=== PATIENT | male | born 1980 | race Caucasian/White ===

== ENCOUNTER 2017-07-09 19:35 | Emergency (ER) | payer OTHER ==
[2017-07-09] MEDS ORDERED: Sodium Chloride 0.9% 10 ML Syringe FLUSH PRN (20:07)
[2017-07-09] MEDS ORDERED: HYDROmorphone 0.5 MG/0.5 ML SYRINGE IVPUSH ONE (20:07)
[2017-07-09] MEDS ORDERED: Metoclopramide 10 MG/2 ML SDV IVPUSH ONE (20:08)
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
--- NOTE | 2017-07-09 21:30 | CT ---
CT lumbar spine Technique: Multiple axial sections were obtained from the top of T11 inferiorly to the mid S2 segment. Reconstructed sagittal and coronal images were reviewed. Comparison: No prior lumbar spine imaging. Findings: Mild disc space narrowing is noted at T11-T12 and T12-L1. Minimal Schmorl node deformities are noted at T12-L1. Other disc spaces are maintained. Posterior disks are fairly well contained with no disc herniation. No central canal stenosis or neural foraminal stenosis is seen. Mild degenerative change is seen within the right apophyseal joint at L5-S1. No fracture is seen. No abnormal subluxation is seen on the reconstructed sagittal images. Impression: 1. Incidental findings. Nothing acute is seen on CT study of the lumbar spine. Diagnostic code #2
== END 2017-07-09 21:55 | disposition home or self-care (01) ==
LOC: JD.ED 19:35
DX: S39.012A Strain of muscle, fascia and tendon of lower back, initial encounter (principal); F17.210 Nicotine dependence, cigarettes, uncomplicated; Z88.0 Allergy status to penicillin; W00.0XXA Fall on same level due to ice and snow, initial encounter; Y93.H1 Activity, digging, shoveling and raking; Y92.89 Other specified places as the place of occurrence of the external cause
CPT/HCPCS: 72131; 96374; 96375; 99284; J1170; J2765; J7050

== ENCOUNTER 2017-08-19 15:33 | Emergency (ER) | payer OTHER ==
[2017-08-19] MEDS ORDERED: Sodium Chloride 0.9% 1,000 ML IV ONE (16:27)
[2017-08-19] MEDS ORDERED: Ondansetron 4 MG/2 ML SDV IVPUSH ONE (16:28)
[2017-08-19] MEDS ORDERED: Sodium Chloride 0.9% 10 ML Syringe FLUSH PRN (16:28)
[2017-08-19] MEDS ORDERED: Famotidine 20 MG/2 ML SDV IVPUSH ONE (16:28)
--- NOTE | 2017-08-19 19:06 | EDM.PDOC ---
ED HPI GENERAL MEDICAL PROBLEM - General Chief Complaint: Abdominal Pain Stated Complaint: CHEST PAIN Time Seen by Provider: 08/19/17 16:10 Source of Information: Reports: Patient History Limitations: Reports: No Limitations - History of Present Illness INITIAL COMMENTS - FREE TEXT/NARRATIVE: 36-year-old male presents for evaluation and treatment of fevers, chest pain and abdominal pain. Patient reports he's had a fever ranging between 100.1 and 103 at home over the last 2-3 days. He states around 3 PM today he started having pain in his right upper abdomen into his chest. He states he is having dry heaves and feels lightheaded. He also reports a cough. No vomiting, syncope or back pain. He states that he has a slight headache. Reports he has shortness of breath but states this is nothing out of the normal for him. he had a lap band placed this was done in [place] by Dr. garner in April 2009. He has not had any problems with this thus far. 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 Left Upper Abdomen Pain Score (Numeric/FACES): 6 - Related Data Allergies Allergy/AdvReac Type Severity Reaction Status Date / Time Penicillins Allergy Rash Verified 07/09/17 20:07 Home Meds: Home Meds Ondansetron [Zofran ODT] 4 mg PO Q6H PRN #15 tab.dis 08/19/17 [Rx] Past Medical History Gastrointestinal History: Reports: Chronic Diarrhea, Diverticulosis Musculoskeletal History: Reports: Arthritis, Fracture, Osteoarthritis Other Musculoskeletal History: bilateral arms and a finger Neurological History: Reports: Concussion - Past Surgical History GI Surgical History: Reports: Appendectomy, Cholecystectomy, Other (See Below) Other GI Surgeries/Procedures: Lap band placement, Social & Family History - Family History Family Medical History: Noncontributory - Tobacco Use Smoking Status *Q: Current Every Day Smoker Years of Tobacco use: 25 Packs/Tins Daily: 1 - Caffeine Use Caffeine Use: Reports: Coffee - Recreational Drug Use Recreational Drug Use: Yes Recreational Drug Type: Reports: Marijuana/Hashish - Living Situation & Occupation Living situation: Reports: Occupation: Employed ED ROS GENERAL - Review of Systems Review Of Systems: See Below Constitutional: Reports: Fever Respiratory: Reports: Shortness of Breath (chronic), Cough Cardiovascular: Reports: Chest Pain, Lightheadedness. Denies: Syncope GI/Abdominal: Reports: Abdominal Pain, Nausea. Denies: Vomiting Musculoskeletal: Denies: Back Pain ED EXAM, GI/ABD - Physical Exam Exam: See Below Exam Limited By: No Limitations General Appearance: Alert, WD/WN, No Apparent Distress, Obese Ears: Normal External Exam, Normal Canal, Hearing Grossly Normal Nose: Normal Inspection Throat/Mouth: Normal Inspection, Normal Lips, Normal Teeth, Normal Oropharynx, Normal Voice, No Airway Compromise Neck: Normal Inspection Respiratory/Chest: No Respiratory Distress, Lungs Clear, Normal Breath Sounds Cardiovascular: Normal Peripheral Pulses, Regular Rate, Rhythm, No Murmur GI/Abdominal Exam: Normal Bowel Sounds, Soft, Non-Tender Neurological: Alert, Oriented, Normal Cognition Psychiatric: Normal Affect, Normal Mood Skin Exam: Warm, Dry, Normal Color EKG INTERPRETATION EKG Date: 08/19/17 Time: 16:30 Rhythm: NSR Rate (Beats/Min): 90 [place]: Normal P-Wave: Present QRS: Normal ST-T: Elevated (V2 slight) QT: Normal EKG Interpretation Comments: NSR at [address] elevation V2. Low voltage limb leads. Reviewed by myself and Dr. Pedersen. Course - Vital Signs Last Recorded V/S: Last Vital Signs Temp 36.8 C 08/19/17 15:40 Pulse 92 08/19/17 15:40 Resp 18 08/19/17 15:40 BP 126/86 08/19/17 15:40 Pulse Ox 97 08/19/17 15:40 - Orders/Labs/Meds Labs: Laboratory Tests 08/19/17 08/19/17 08/19/17 Range/Units 16:45 16:45 17:45 WBC 6.23 (4.23-9.07) K/mm3 RBC 5.19 (4.63-6.08) M/mm3 Hgb 14.6 (13.7-17.5) gm/L Hct 44.4 (40.1-51.0) % MCV 85.5 (79.0-92.2) fl MCH 28.1 (25.7-32.2) pg MCHC 32.9 (32.2-35.5) g/dl RDW Std Deviation 44.6 H (35.1-43.9) fL Plt Count 213 (163-337) K/mm3 MPV 10.3 (9.4-12.3) fl Neutrophils % (Manual) 86 H (40-60) % Band Neutrophils % 0 (0-10) % Lymphocytes % (Manual) 7 L (20-40) % Atypical Lymphs % 0 % Monocytes % (Manual) 5 (2-10) % Eosinophils % (Manual) 1 (0.8-7.0) % Basophils % (Manual) 1 (0.2-1.2) Platelet Estimate Adequate RBC Morph Comment Normal Sodium 137 (136-145) mEq/L Potassium 3.8 (3.5-5.1) mEq/L Chloride 101 (98-107) mEq/L Carbon Dioxide 23 (21-32) mEq/L Anion Gap 16.8 H (5-15) BUN 15 (7-18) mg/dL Creatinine 0.9 (0.7-1.3) mg/dL Est Cr Clr Drug Dosing 114.91 mL/min Estimated GFR (MDRD) > 60 (>60) mL/min BUN/Creatinine Ratio 16.7 (14-18) Glucose 96 (74-106) mg/dL Calcium 8.4 L (8.5-10.1) mg/dL Total Bilirubin 0.7 (0.2-1.0) mg/dL AST 16 (15-37) U/L ALT 18 (16-63) U/L Alkaline Phosphatase 78 (46-116) U/L Troponin I < 0.017 (0.00-0.056) ng/mL C-Reactive Protein 5.3 H* (<1.0) mg/dL Total Protein 7.2 (6.4-8.2) g/dl Albumin 3.6 (3.4-5.0) g/dl Globulin 3.6 gm/dL Albumin/Globulin Ratio 1.0 (1-2) Urine Color Yellow (Yellow) Urine Appearance Clear (Clear) Urine pH 6.0 (5.0-8.0) Ur Specific [place] > or = 1.030 (1.005-1.030) Urine Protein 1+ H (Negative) Urine Glucose (UA) Negative (Negative) Urine Ketones Trace H (Negative) Urine Occult Blood Negative (Negative) Urine Nitrite Negative (Negative) Urine Bilirubin 1+ H (Negative) Urine Urobilinogen 1.0 (0.2-1.0) Ur Leukocyte Esterase Negative (Negative) Urine RBC 0-5 (0-5) /hpf Urine WBC 0-5 (0-5) /hpf Ur Epithelial Cells Not seen (0-5) /hpf Urine Bacteria Occasional (FEW) /hpf Urine Mucus Many H (FEW) /hpf Meds: Medications Discontinued Medications Generic Name Dose Route Start Last Admin Trade Name Freq PRN Reason Stop Dose Admin Famotidine 20 mg 08/19/17 16:28 08/19/17 16:44 Pepcid IVPUSH 08/19/17 16:29 20 mg ONETIME ONE Administration Sodium Chloride 1,000 mls @ 999 mls/hr 08/19/17 16:27 08/19/17 16:42 Normal Saline IV 08/19/17 17:27 999 mls/hr ONETIME ONE Administration Ondansetron HCl 4 mg 08/19/17 16:28 08/19/17 16:43 Zofran IVPUSH 08/19/17 16:29 4 mg ONETIME ONE Administration Sodium Chloride 10 ml 08/19/17 16:28 08/19/17 16:45 Saline Flush FLUSH 10 ml ASDIRECTED PRN Administration Keep Vein Open - Radiology Interpretation Free Text/Narrative:: 2 view chest x-ray shows no acute intrathoracic process. - Re-Assessments/Exams Free Text/Narrative Re-Assessment/Exam: 08/19/17 18:55 At this point the patient is resting comfortably. He is anxious to go home at this time. I reviewed the EKG, labs and chest x-ray results with the patient. We will discharge him home. Discharge instructions as documented. Departure - Departure Time of Disposition: 18:55 Disposition: Home, Self-Care 01 Condition: Fair Clinical Impression: Viral gastroenteritis - Discharge Information Prescriptions: Ondansetron [Zofran ODT] 4 mg PO Q6H PRN #15 tab.dis PRN Reason: Nausea Instructions: Viral Gastroenteritis, Adult, [id number] Referrals: PCP,None [Primary Care Provider] - Ruthie Nina [Physician] - Forms: ED Department Discharge Additional Instructions: take the zofran 1 tab sublingual every 6-8 hours prn nausea. take tylenol or motrin as needed for fevers and discomfort. Follow-up with Dr. Weber this week if symptoms persist. Please return to the ER for symptoms change or worsen.
--- NOTE | 2017-08-20 07:39 | CR ---
Chest: Two views of the chest were obtained. Comparison: Prior chest x-ray of 07/14/10. Heart size and mediastinum are normal. Lungs are clear. Lap band is noted. Bony structures are within normal limits for the patient's age. Impression: 1. Nothing acute is identified on two-view chest x-ray. Diagnostic code #2
== END 2017-08-19 19:08 | disposition home or self-care (01) ==
LOC: JD.ED 15:33
DX: A08.4 Viral intestinal infection, unspecified (principal); F17.210 Nicotine dependence, cigarettes, uncomplicated; Z88.0 Allergy status to penicillin
CPT/HCPCS: 36415; 71046; 80053; 81001; 84484; 85025; 86140; 93005; 96361; 96374; 96375; 99285; J2405; J7040; J7050

== ENCOUNTER 2019-12-05 20:33 | Emergency (ER) | payer OTHER ==
--- NOTE | 2019-12-05 21:13 | EDM.PDOC ---
ED HPI GENERAL MEDICAL PROBLEM - General Chief Complaint: Lower Extremity Injury/Pain Stated Complaint: RT HEEL PAIN SWELLING FEELS LIKE SOMETHING IN IT Time Seen by Provider: 12/05/19 20:38 Source of Information: Reports: Patient History Limitations: Reports: No Limitations - History of Present Illness INITIAL COMMENTS - FREE TEXT/NARRATIVE: Patient is a 39-year-old male who presents to the emergency department with complaints of pain to his right heel. He states symptoms began yesterday morning. He states he awoke with the pain and has had no trauma to the area that he is aware of. He describes a sharp stabbing pain on the ventral aspect of his foot distal to the heel. He has no history of chronic foot pain. Right Feet Pain Score (Numeric/FACES): 2 - Related Data Allergies Allergy/AdvReac Type Severity Reaction Status Date / Time Penicillins Allergy Severe Rash Verified 12/05/19 20:47 Home Meds: Home Meds Naproxen [Naprosyn] 500 mg PO Q12HR #10 tab 12/05/19 [Rx] Past Medical History Gastrointestinal History: Reports: Chronic Diarrhea, Diverticulosis Musculoskeletal History: Reports: Arthritis, Fracture, Osteoarthritis Other Musculoskeletal History: bilateral arms and a finger Neurological History: Reports: Concussion - Past Surgical History GI Surgical History: Reports: Appendectomy, Cholecystectomy, Other (See Below) Other GI Surgeries/Procedures: Lap band placement, Social & Family History - Family History Family Medical History: Noncontributory - Tobacco Use Smoking Status *Q: Current Every Day Smoker Years of Tobacco use: 30 Packs/Tins Daily: 1 - Caffeine Use Caffeine Use: Reports: Coffee - Recreational Drug Use Recreational Drug Use: No - Living Situation & Occupation Living situation: Reports: Occupation: Employed Review of Systems - Review of Systems Review Of Systems: See Below Constitutional: Reports: No Symptoms Eyes: Reports: No Symptoms Ears: Reports: No Symptoms Nose: Reports: No Symptoms Mouth/Throat: Reports: No Symptoms Respiratory: Reports: No Symptoms Cardiovascular: Reports: No Symptoms GI/Abdominal: Reports: No Symptoms Genitourinary: Reports: No Symptoms Musculoskeletal: Reports: Other (Right heel pain) Skin: Reports: No Symptoms Neurological: Reports: No Symptoms Psychiatric: Reports: No Symptoms ED EXAM, GENERAL - Physical Exam Exam: See Below Exam Limited By: No Limitations General Appearance: Alert, WD/WN, No Apparent Distress Respiratory/Chest: No Respiratory Distress, Lungs Clear, Normal Breath Sounds, No Accessory Muscle Use, Chest Non-Tender Cardiovascular: Normal Peripheral Pulses, Regular Rate, Rhythm, No Edema, No Gallop, No JVD, No Murmur, No Rub Extremities: Normal Inspection, Normal Range of Motion, Other (Tenderness to palpation on the ventral aspect of the foot distal to the calcaneal tuberosity. No redness or lesion present. Pain worsens with dorsoflexion of the toes.) Neurological: Alert, Oriented, CN II-XII Intact, Normal Cognition, Normal Gait, Normal Reflexes, No Motor/Sensory Deficits Psychiatric: Normal Affect, Normal Mood Skin Exam: Warm, Dry, Intact, Normal Color, No Rash Course - Vital Signs Last Recorded V/S: Last Vital Signs Temp 98.1 F 12/05/19 20:45 Pulse 80 12/05/19 20:45 Resp 16 12/05/19 20:45 BP 147/97 H 12/05/19 20:45 Pulse Ox 99 12/05/19 20:45 - Orders/Labs/Meds Orders: Active Orders 24 hr Category Date Time Status Foot Comp Min 3V Rt [CR] Stat Exams 12/05/19 20:55 Ordered - Re-Assessments/Exams Free Text/Narrative Re-Assessment/Exam: 12/05/19 21:14 X-ray of the right foot was completed and found to be normal. There are no signs of any foreign body within the heel. I feel is likely the patient is suffering from plantar fasciitis. I will write a prescription for Naprosyn and recommend that he follow-up with pin inserter, Dr. Ingram at his next available appointment. Discharge instructions as documented. Departure - Departure Time of Disposition: 21:18 Disposition: Home, Self-Care 01 Condition: Good Clinical Impression: Heel pain Qualifiers: Laterality: right Qualified Code(s): M79.671 - Pain in right foot - Discharge Information *PRESCRIPTION DRUG MONITORING PROGRAM REVIEWED*: No *COPY OF PRESCRIPTION DRUG MONITORING REPORT IN PATIENT CLAUDINE: No Prescriptions: Naproxen [Naprosyn] 500 mg PO Q12HR #10 tab Instructions: Foot Pain Referrals: Chu Ingram II, DPM [Physician] - Forms: ED Department Discharge Additional Instructions: You were seen in the emergency department this evening for pain to your right heel. X-rays were completed and showed no evidence of a foreign body in the heel, and there is no signs of an entrance wound for possible foreign body. Your exam is consistent with likely plantar fasciitis which is an inflammation of the plantar fascia which extends across the bottom of your foot. A prescription for Naprosyn which is an anti-inflammatory has been sent to [facility] in [place]. Take this medication as prescribed. You may also ice over the area of pain intermittently over the next few days to help reduce the inflammation. Recommend that you wear shoes that have good arch support as this will likely improve your symptoms. Recommend that you call to schedule an appointment with pin inserter, Dr. Ingram at his next available appointment. Return to the ER for any worsening symptoms. Sepsis Event Note (ED) - Evaluation Sepsis Screening Result: No Definite Risk - Focused Exam Vital Signs: Vital Signs Temp Pulse Resp BP Pulse Ox 12/05/19 20:45 98.1 F 80 16 147/97 H 99 - My Orders Last 24 Hours: My Active Orders 12/05/19 20:55 Foot Comp Min 3V Rt [CR] Stat - Assessment/Plan Last 24 Hours: My Active Orders 12/05/19 20:55 Foot Comp Min 3V Rt [CR] Stat
--- NOTE | 2019-12-06 13:42 | CR ---
Right foot: 4 views of the right foot were obtained. Comparison: No prior right foot exam is available. No fracture, dislocation or other bony abnormality is appreciated. Impression: 1. No abnormality is appreciated on right foot exam. Diagnostic code #1 This report was dictated in MDT
== END 2019-12-05 21:27 | disposition home or self-care (01) ==
LOC: JD.ED 20:33
DX: M79.671 Pain in right foot (principal); F17.210 Nicotine dependence, cigarettes, uncomplicated; Z88.0 Allergy status to penicillin
CPT/HCPCS: 73630-26-RT; 73630-RT; 99283

== ENCOUNTER 2020-05-17 08:05 | Emergency (ER) | payer OTHER ==
--- NOTE | 2020-05-17 09:08 | EDM.PDOC ---
ED HPI GENERAL MEDICAL PROBLEM - General Chief Complaint: Lower Extremity Injury/Pain Stated Complaint: KNEE INJURY Time Seen by Provider: 05/17/20 08:27 Source of Information: Reports: Patient History Limitations: Reports: No Limitations - History of Present Illness INITIAL COMMENTS - FREE TEXT/NARRATIVE: 39-year-old male presents to the emergency department with complaints of an injury to his left knee. Patient states he was at work yesterday in [place] at a job site when he was walking down a hill and somehow twisted his left knee he said he heard immediately popping and snapping and was unable to bear weight. He immediately went to the clinic where they took x-rays and gave him an immobilizer brace. He then drove back to [place] arriving yesterday late afternoon and was seen at occupational health by Dr. Lawrence. He gave them a prescription for some pain medication and stated that the patient would need to have an MRI, hopefully sometime today and then follow-up with Ortho. Patient presents to the emergency department this morning. Left Knee Pain Score (Numeric/FACES): 5 - Related Data Allergies Allergy/AdvReac Type Severity Reaction Status Date / Time Penicillins Allergy Severe Rash Verified 05/17/20 08:51 Home Meds: Home Meds Naproxen [Naprosyn] 500 mg PO Q12HR #10 tab 12/05/19 [Rx] Past Medical History Gastrointestinal History: Reports: Chronic Diarrhea, Diverticulosis Musculoskeletal History: Reports: Arthritis, Fracture, Osteoarthritis Other Musculoskeletal History: bilateral arms and a finger Neurological History: Reports: Concussion - Past Surgical History GI Surgical History: Reports: Appendectomy, Cholecystectomy, Other (See Below) Other GI Surgeries/Procedures: Lap band placement, Social & Family History - Family History Family Medical History: No Pertinent Family History - Caffeine Use Caffeine Use: Reports: Coffee - Living Situation & Occupation Living situation: Reports: Occupation: Employed Review of Systems - Review of Systems Review Of Systems: See Below Constitutional: Reports: No Symptoms Eyes: Reports: No Symptoms Ears: Reports: No Symptoms Nose: Reports: No Symptoms Mouth/Throat: Reports: No Symptoms Respiratory: Reports: No Symptoms Cardiovascular: Reports: No Symptoms GI/Abdominal: Reports: No Symptoms Genitourinary: Reports: No Symptoms Musculoskeletal: Reports: Joint Pain (Left knee), Joint Swelling (Left knee) Skin: Reports: No Symptoms Neurological: Reports: No Symptoms Psychiatric: Reports: No Symptoms ED EXAM, GENERAL - Physical Exam Exam: See Below Exam Limited By: No Limitations General Appearance: Alert, WD/WN, No Apparent Distress Eye Exam: Bilateral Eye: PERRL Ears: Hearing Grossly Normal Nose: Normal Inspection Throat/Mouth: Normal Voice, No Airway Compromise Head: Atraumatic, Normocephalic Neck: Normal Inspection, Supple, Non-Tender, Full Range of Motion Respiratory/Chest: No Respiratory Distress, Lungs Clear, Normal Breath Sounds, No Accessory Muscle Use, Chest Non-Tender Cardiovascular: Normal Peripheral Pulses, Regular Rate, Rhythm, No Edema, No Murmur Peripheral Pulses: 2+: Radial (L), Radial (R) GI/Abdominal: Normal Bowel Sounds, Soft, Non-Tender, No Distention (Male) Exam: Deferred Rectal (Males) Exam: Deferred Back Exam: Normal Inspection, Full Range of Motion Extremities: Normal Inspection, No Pedal Edema, Normal Capillary Refill, Joint Swelling (Knee), Limited Range of Motion (Left knee, pt is unable to lift his left leg off of the bed-heel drags) Neurological: Alert, Oriented, Normal Cognition Psychiatric: Normal Affect, Normal Mood Skin Exam: Warm, Dry, Intact, Normal Color, No Rash Lymphatic: No Adenopathy Course - Vital Signs Text/Narrative:: I did speak to MRI and they are able to get him in right now. Last Recorded V/S: Last Vital Signs Temp 97.2 F 05/17/20 08:42 Pulse 81 05/17/20 08:42 Resp 16 05/17/20 08:42 BP 139/86 05/17/20 08:42 Pulse Ox 96 05/17/20 08:42 - Orders/Labs/Meds Meds: Medications Discontinued Medications Generic Name Dose Route Start Last Admin Trade Name Freq PRN Reason Stop Dose Admin Oxycodone/Acetaminophen 1 tab 05/17/20 10:56 05/17/20 11:07 Percocet 325-5 Mg PO 05/17/20 10:57 1 tab ONETIME ONE Administration - Radiology Interpretation Free Text/Narrative:: MRI of the left knee radiologist impression: 1. Soft tissue edema within the subcutaneous tissues mostly anterior seen. Joint effusion is seen. 2. Probable patellar retinaculum tears on both sides. 3. Increased signal within the distal quadriceps tendon felt compatible with a partial tear. 4. Full-thickness tear felt to be present within the patellar ligament. 5. Increased signal is seen within the median meniscus felt to remain intrameniscal and no findings of meniscal tear are definitely appreciated. - Re-Assessments/Exams Free Text/Narrative Re-Assessment/Exam: 05/17/20 10:[address] Lawrence, occupational health doctor at [place], and he is agreeable to me referring the patient on to orthopedics. Dr. Herring is out of the office until next week so the patient requests that we call [facility] in [place]. 05/17/20 10:[address] Harrell's nurse, as he was in surgery, and he is going to look at the patient's MRI films and call me back after. 05/17/20 11:42 Still have not received a call back from Dr. Harrell's office, so we will let patient be discharged home and we will notify them of their appointment. Departure - Departure Time of Disposition: 11:42 Disposition: Home, Self-Care 01 Condition: Good Clinical Impression: Left knee injury Qualifiers: Encounter type: initial encounter Qualified Code(s): S89.92XA - Unspecified injury of left lower leg, initial encounter - Discharge Information Instructions: How to Use a Knee Immobilizer, [id number], Crutch Use, Adult, [id number], Pain Medicine Instructions, [id number] Referrals: PCP,None [Primary Care Provider] - Forms: ED Department Discharge Additional Instructions: You were seen in the emergency department with complaints of left knee pain due to the traumatic injury. An MRI was completed. Your MRI films were already sent to [facility] in [place]. Dr. Harrell will be phoning us back and we can notify you of your appointment time. Continue to take the Percocet as prescribed by Dr. Lawrence and ibuprofen as prescribed. You may ice the area 20 minutes at a time and continue to use the immobilizer brace to your left leg and crutches. Should your condition worsen or change please return to the emergency department Sepsis Event Note (ED) - Evaluation Sepsis Screening Result: No Definite Risk - Focused Exam Vital Signs: Vital Signs Temp Pulse Resp BP Pulse Ox 05/17/20 08:42 97.2 F 81 16 139/86 96
--- NOTE | 2020-05-17 10:07 | MR ---
MRI left knee Technique: Proton fat suppressed axial; fat suppressed inversion recovery, T2 gradient echo and T2 fat suppressed coronal; T1, T2 gradient echo and proton fat suppressed sagittal images were obtained of the left knee. Comparison: No prior knee study is available. Findings: Soft tissue edema is seen mostly anteriorly. Joint effusion is noted. Probable disruption of the patellar retinaculum is seen on both sides. No popliteal cyst is appreciated. Distal quadriceps tendon shows increased signal likely representing a partial tear. No definite full-thickness tear is seen. There appears to be a full-thickness tear within the proximal patellar tendon. Anterior and posterior cruciate ligaments show nothing acute. Increased signal is seen within portions of the medial meniscus which are felt to remain intrameniscal. No definite meniscal tear is seen. Cartilage within the medial and lateral joints appear preserved. Impression: 1. Soft tissue edema within the subcutaneous tissues mostly anterior is seen. Joint effusion is seen. 2. Probable patellar retinaculum tears on both sides. 3. Increased signal within the distal quadriceps tendon felt compatible with a partial tear. 4. Full-thickness tear felt to be present within the patellar ligament. 5. Increased signal is seen within the medial meniscus felt to remain intrameniscal and no findings of meniscal tear are definitely appreciated. Diagnostic code #3
[2020-05-17] MEDS ORDERED: Acetaminophen/oxyCODONE 325-5 MG Tab PO ONE (10:56)
== END 2020-05-17 11:57 | disposition home or self-care (01) ==
LOC: JD.ED 08:05
DX: S89.92XA Unspecified injury of left lower leg, initial encounter (principal); Z88.0 Allergy status to penicillin; X50.1XXA Overexertion from prolonged static or awkward postures, initial encounter
CPT/HCPCS: 73721; 99283; A9270

== ENCOUNTER 2024-02-01 15:25 | Emergency (ER) | payer OTHER ==
[2024-02-01] MEDS: Diphtheria,Pertussis(Acell),Tetanus Vaccine 0.5 ML Syringe IM ONE (17:46)
[2024-02-01] MEDS: Ketorolac 30 MG/ML SDV IM ONE (18:13)
== END 2024-02-01 18:22 | disposition home or self-care (01) ==
LOC: JD.ED 15:25
DX: S60.410A Abrasion of right index finger, initial encounter (principal); Z23 Encounter for immunization; Z90.49 Acquired absence of other specified parts of digestive tract; Z88.0 Allergy status to penicillin; W31.9XXA Contact with unspecified machinery, initial encounter
CPT/HCPCS: 90471; 90715; 96372; 99283; J1885